=== PATIENT | male | born 1990 | race Caucasian/White ===

== ENCOUNTER 2019-05-05 23:27 | Emergency (ER) | payer BC, OTHER ==
[2019-05-05 23:35] VITALS: BP 123/81; TEMP 98.8; BMI 26.2
[2019-05-05] MEDS ORDERED: SODIUM CHLORIDE 1,000 ML IV ONE (23:42)
[2019-05-05] MEDS ORDERED: PENICILLIN G BENZATHINE 1,200,000 UNIT/2 ML PFS IM ONE ×2 (23:42→23:47)
[2019-05-05] MEDS ORDERED: DEXAMETHASONE SOD PHOSPHATE 10 MG/1 ML VIAL IVPUSH ONE (23:42)
--- NOTE | 2019-05-05 23:43 | PDOC ---
History of Present Illness - General Chief Complaint: Pain Stated Complaint: SORE THROAT/BACK ACHE Time Seen by Provider: 05/05/19 23:37 History Source: Patient Exam Limitations: No Limitations - History of Present Illness Initial Comments: 05/05/19 23:43 This is a 28-year-old male who comes in complaining of 24 hours of sore throat, fever, chills, difficulty swallowing and some change in his voice. Patient otherwise is healthy and denies any other medical problems. Allergies: as per nursing notes Past Medical History: none Social history: Lives with family. No smoking. No alcohol. No illicit drugs. Surgical history: None General: No fevers or chills, no weakness, no weight loss HEENT: No change in vision. No sore throat,. No ear pain CardioVascular: no chest discomfort. No shortness of breath Respiratory:No cough, or wheezing. Gastrointestinal: no nausea, vomiting, diarrhea or constipation, No rectal bleeding Genitourinary: No dysuria, hematuria, or frequency Musculoskeletal: No joint or muscle pain or swelling Neurologic: No headache, vertigo, dizziness or loss of consciousness Psychiatric: nor depression Skin: No rashes or easy bruising Endocrine: no increased thirst or abnormal weight change Allergic: no skin or latex allergy All other systems reviewed and normal GENERAL: The patient is awake, alert, and fully oriented, in no acute distress. HEAD: Normal with no signs of trauma. Posterior oropharynx there is moderate amount of exudate with enlargement of the tonsils. There is no peritonsillar abscess, there is bilateral submandibular lymphadenopathy EYES: Pupils equal, round and reactive to light, extraocular movements intact, sclera anicteric, conjunctiva clear. EXTREMITIES:atraumatic, Normal range of motion, no edema. NEUROLOGICAL: Normal speech, normal gait. PSYCH: Normal mood, normal affect. SKIN: Warm, Dry, normal turgor, no rashes or lesions noted. Assessment and plan: This is a 28-year-old male with an exudative pharyngitis lymphadenopathy and fever. Patient meets criteria for strep. Patient also is tachycardic to 130 secondary to not being able to swallow and dehydration. Patient given 1 L of fluid Bicillin L-A Decadron Patient instructed that if he is not better in 24 hours that he needs to be reevaluated by an ENT. Patient discharged home Past History - Past Medical History Allergies/Adverse Reactions: Allergies Allergy/AdvReac Type Severity Reaction Status Date / Time No Known Allergies Allergy Unverified 05/05/19 23:28 Home Medications: Ambulatory Orders NK [No Known Home Medication] 05/05/19 COPD: No - Psycho Social/Smoking Cessation Hx Smoking History: Former smoker Have you smoked in the past 12 months: No Information on smoking cessation initiated: No *Physical Exam - Vital Signs Last Vital Signs Temp Pulse Resp BP Pulse Ox 98.8 F 130 H 16 123/81 99 05/05/19 23:28 05/05/19 23:28 05/05/19 23:28 05/05/19 23:28 05/05/19 23:28 Discharge - Discharge Information Problems reviewed: Yes Clinical Impression/Diagnosis: Exudative pharyngitis Condition: Stable Disposition: HOME - Admission No - Follow up/Referral - Patient Discharge Instructions Additional Instructions: You are given Decadron, a long acting antibiotic called Bicillin L-A, and IV fluids here in the emergency department tonight You should be significantly better in 24 hours if you are not better it is important that you be reevaluated by an ENT. We do not have an ENT here so I recommend that you go to either [facility] or a larger emergency department that has an ENT. Tylenol or Motrin as needed for pain. Try to increase your fluid intake to prevent dehydration. Return to the emergency department immediately with ANY new, persistent or worsening symptoms. Continue any medications as previously prescribed by your physician. You should follow up with your primary doctor as soon as possible regarding today's emergency department visit. . Please make sure your doctor reviews the results of your emergency evaluation. Thank you for coming to the Emergency Department today for your care. It was a pleasure to see you today. Please note that your evaluation is INCOMPLETE until you follow-up with your doctor. - Post Discharge Activity Work/Back to School Note: Back to Work
[2019-05-05] MEDS ORDERED: DEXAMETHASONE SOD PHOSPHATE 10 MG/1 ML VIAL ONE (23:46)
[2019-05-05] MEDS ORDERED: ACETAMINOPHEN 1000 MG/100 ML VIAL (NON FORMULARY) IVPB ONE (23:50)
[2019-05-05] MEDS ORDERED: ACETAMINOPHEN INJECTION 100 ML IVPB ONE (23:52)
[2019-05-06 01:20] VITALS: PULSE 108
== END 2019-05-06 01:20 | disposition home or self-care (01) ==
LOC: FER 23:27
PROC: 3E02329 Introduction of Other Anti-infective into Muscle, Percutaneous Approach (ICD-10-PCS; principal; 2019-05-05)
PROC: 3E033NZ Introduction of Analgesics, Hypnotics, Sedatives into Peripheral Vein, Percutaneous Approach (ICD-10-PCS; 2019-05-05)
PROC: 3E0333Z Introduction of Anti-inflammatory into Peripheral Vein, Percutaneous Approach (ICD-10-PCS; 2019-05-05)
DX: J02.9 Acute pharyngitis, unspecified (principal); Z87.891 Personal history of nicotine dependence
CPT/HCPCS: 99283-25; J0131; J1100; J7030